=== PATIENT | male | born 1950 | race Caucasian/White ===

== ENCOUNTER 2021-05-06 08:23 | Day surgery (SDC) | payer OTHER ==
[2021-05-02 12:17] LABS: Absolute Lymphocytes (CBC) 2.1 K/uL (0.7-4.9); Hematocrit 37.1 % (39.6-49.0); Lymphocytes % 34.5 % (15.3-44.8); MPV 8.3 fL (7.6-11.3); RBC Red Blood Cell Count 4.44 M/uL (4.33-5.43)
[2021-05-02 12:21] LABS: Potassium 4.2 mmol/L (3.5-5.1)
--- NOTE | 2021-05-04 07:30 | EKG ---
Test Date: 2021-05-02 Test Time: 11:47:37 Funeral Service Practitioner/Embalmer: PONCHO MEASUREMENT RESULTS: Intervals: Rate: 79 MT: 144 QRSD: 80 QT: 380 QTc: 435 [place]: P: -7 MT: 144 QRS: 58 T: 41 INTERPRETIVE STATEMENTS: Sinus rhythm with premature atrial complexes Otherwise normal ECG Compared to ECG 10/21/2018 09:58:05 Atrial premature complex(es) now present Sinus bradycardia no longer present Electronically Signed On 05-04-21 07:26:29 COMPUTER SYSTEMS SECURITY ANALYST by Esau Hunt
[2021-05-06] MEDS ORDERED: Ringers Lactate 1,000 ML IV ONE ×2 (08:36→12:33)
[2021-05-06] MEDS ORDERED: CEFAZOLIN/SWI 2gm 2 GM/20 ML SYR ONE (08:37)
[2021-05-06] MEDS ORDERED: CELECOXIB 100 MG CAPSULE ONE (08:49)
[2021-05-06] MEDS ORDERED: ACETAMINOPHEN 500 MG TAB ONE (08:49)
[2021-05-06] MEDS ORDERED: CELECOXIB 100 MG CAPSULE PO ONE (08:50)
[2021-05-06] MEDS ORDERED: ACETAMINOPHEN 500 MG TAB PO ONE (08:50)
[2021-05-06] MEDS ORDERED: BUPIVACAINE 0.25% PF 10 ML VIAL ONE (09:20)
[2021-05-06] MEDS ORDERED: propofoL 200 MG/20 ML VIAL IV ONE (09:30)
[2021-05-06] MEDS ORDERED: MIDAZOLAM HCL 2 MG/2 ML INJ ONE (09:31)
[2021-05-06] MEDS ORDERED: FENTANYL CITR 100 MCG/2 ML ONE (09:31)
[2021-05-06] MEDS ORDERED: ONDANSETRON 4 MG/2 ML VIAL ONE (09:32)
[2021-05-06] MEDS ORDERED: LIDOCAINE 2% MPF 5 ML VIAL ONE (09:34)
[2021-05-06] MEDS ORDERED: GLYCOPYRROLATE 0.2 MG/ML SYR ONE (09:37)
[2021-05-06] MEDS ORDERED: NEOSTIGMINE 1 MG/ML -5 ML ONE (09:38)
[2021-05-06] MEDS ORDERED: ROCURONIUM 50 MG/5 ML VIAL IV ONE (09:38)
[2021-05-06] MEDS ORDERED: EPHEDRINE SULF 50 MG/ML VIAL ONE (10:14)
--- NOTE | 2021-05-06 11:31 | P.OP ---
Preoperative diagnosis: LEFT inguinal hernia Postoperative diagnosis: LEFT inguinal hernia Primary procedure: Open LEFT Inguinal Hernia Repair with mesh Anesthesia: GETA + Local Estimated blood loss: <10cc Specimen: cord lipoma Findings: Pantaloon - Direct / Indirect LEFT inguinal hernia Complications: None Implants: Large Bard Perfix Plug and Patch Hernia Mesh Transferred to: Recovery Room () Condition: Good
[2021-05-06] MEDS: HYDROMORPHONE HCL 1 MG/ML INJ ONE ×2 (12:09→12:14)
[2021-05-06 12:14] VITALS: O2SAT 99
[2021-05-06] MEDS ORDERED: HYDROCODONE/APAP 7.5/325 MG TAB ONE (12:59)
[2021-05-06 14:14] VITALS: BP 132/69; TEMP 97.1
--- NOTE | 2021-05-06 21:41 | OP ---
Date of Procedure: 05/06/2021 Surgeon: Issa Blackman MD, Preoperative Diagnosis: Left inguinal hernia. Postoperative Diagnosis: Left inguinal hernia. Procedure: Open left inguinal hernia repair with mesh. Anesthesia: General endotracheal plus local with 0.25% Marcaine. Estimated Blood Loss: Less than 10 mL. Specimen: Cord lipoma. Findings: This was a pantaloon direct/indirect left inguinal hernia, reducible. Complications: None. Implants: Large Bard PerFix plug and patch hernia mesh used. The patient was transferred to recovery room in good condition. Procedure In Detail: After informed consent was obtained, the patient was brought to the operating r oom, prepped and draped in the usual sterile fashion. After adequate anesthesia was achieved, an are a of the left inguinal skin was appropriately anesthetized with 0.25% Marcaine without epinephrine, s harply incised with a 10 blade down to the subcutaneous tissues, and dissection continued down throug h the Camper fat and [place]idad fascia to expose the external oblique aponeurosis. This was opened sharp ly with a 15 blade. I then opened in its entirety protecting the ilioinguinal nerve both superior to the deep inguinal ring as well as the proximal aspect. The spermatic cord and structures were encir cled with a Ollie drain at this point, and then I dissected the cord lipoma off the spermatic cord at this point. Examination discovered 2 hernia defects, 1 from the deep inguinal ring and 1 from the floor consistent with a pantaloon direct/indirect type inguinal hernia. I dissected the hernia sac free from the surrounding tissues circumferentially off the spermatic cord and structures. I opened the hernia sac and inverted the sac at this point and ligated it with a 3-0 Vicryl suture after inver ting the sac. I then placed a large Bard PerFix plug into the extraperitoneal space at this point wi th good apposition of the tissues. I then secured the mesh using a single 2-0 PDS suture over the de fect of the plug. At this point, I sized the hernia patch appropriately and placed on the floor of t he inguinal canal. At this point, the patient remained in steep Trendelenburg position. I then secu red the mesh to the pubic tubercle and at this point, I secured the hernia patch to the shelving edge of the inguinal ligament as well as the internal oblique fibers. At this point, I reconstituted the deep inguinal ring using 2-0 PDS sutures. This was the same suture used for the entire hernia patch , which was placed in interrupted fashion. At this point, the area was copiously irrigated and sucti oned out completely dry. Ollie drains were removed. The area was irrigated once again and the ext ernal oblique aponeurosis was closed using a running 3-0 Vicryl suture with good apposition of the ti ssues. The Camper fat and Trinidad fascia were then closed also using an interrupted 3-0 Vicryl suture and the deep dermal plane was closed using interrupted 3-0 Vicryl sutures. Skin was closed with 4-0 Monocryl in a running fashion. Dermabond was placed over top. The patient tolerated procedure well without evidence of complication, and transferred in good condition. All counts were correct at the end of the case. FATUMA/CAMDEN Voice ID: [id number] Report ID: [id number]
== END 2021-05-06 13:50 | disposition home or self-care (01) ==
LOC: OR 08:23
PROVIDERS: ATTEND Surgery
PROC: 0YU60JZ Supplement Left Inguinal Region with Synthetic Substitute, Open Approach (ICD-10-PCS; principal; 2021-05-06 10:00)
DX: K40.90 Unilateral inguinal hernia, without obstruction or gangrene, not specified as recurrent (principal); Z20.822 Contact with and (suspected) exposure to COVID-19
CPT/HCPCS: 93005; 85025; 80048; 36415; 88302; 49505; U0002; J2704; J2250; J3010; J1170; J2710; J0690; J7120 ×2; J2405

== ENCOUNTER 2024-08-29 08:19 | Day surgery (SDC) | payer OTHER ==
[2024-08-28 10:03] LABS: Absolute Eosinophils 0.2 K/uL (0-0.5); Absolute Lymphocytes (CBC) 1.8 K/uL (0.7-4.9); Absolute Monocytes 0.7 K/uL (0.1-1.3); Absolute Neutrophil 4.1 K/uL (1.8-8.0); Basophils % 0.3 % (0-1.3); Eosinophils % 2.4 % (0-4.4); Hematocrit 41.6 % (39.6-49.0); Hemoglobin 14.3 g/dL (13.6-17.9); Lymphocytes % 26.3 % (15.3-44.8); MCH 31.1 pg (27.0-35.0); MCHC 34.3 g/dL (32.0-36.0); MCV 90.7 fL (80-100); Monocytes % 9.9 % (3.3-12.3); Neutrophils % 61.1 % (41.7-73.7); Nucleated Red Blood Cells % 0.1 % (0-0); Platelets 233 thou/uL (152-406); RBC Red Blood Cell Count 4.59 M/uL (4.33-5.43)
[2024-08-28 10:16] LABS: Anion Gap 10.2 mEq/L (5.0-15.0); Potassium 4.2 mEq/L (3.5-5.1)
[2024-08-29] MEDS: Ringers Lactate 1,000 ML IV ONE (08:40)
[2024-08-29] MEDS: LIDOCAINE HCL/EPINEPHRINE 20 ML MDV ONE (10:31)
--- NOTE | 2024-08-29 11:33 | P.OP ---
Machine Spring Former: NONE,NONE Preoperative diagnosis: Basal cell carcinoma left external ear Postoperative diagnosis: Same Primary procedure: Excision with layered closure left external ear Anesthesia: Local anesthetic only Estimated blood loss: Less than 5 mL Specimen: Left ear, suture doe 12:00, frozen section Findings: Negative margins on frozen section Operative Technique: The patient was brought to the operating room and positioned in a supine position with oxygen and cardiac monitors. The timeout was confirming the patient's identity, planned procedure and location. The patient verbally confirmed the location as the left ear which had also been marked in the preoperative area. The left ear was cleaned with isopropyl alcohol and the inspected. There was superficial scabbing on the inferior/posterior aspect of the helix. There was adjacent scar from remote prior excision. The area surrounding the visible lesion was injected with 1% lidocaine with epinephrine. A total of 1.25 mL was used. The ear and surrounding region was prepped with Betadine and draped in a sterile fashion. Fire risk was low to medium as no supplemental oxygen was administered. A surgical marking pen was used to marilee the planned incision site encompassing the visible lesion and allowing a 2 to 3 mm margin. A 15 blade scalpel was used to incise through the skin and subcutaneous tissues down to the level of the cartilage. The specimen was marked with a suture at the superiormost aspect indicating 12:00 and was sent to pathology for frozen section analysis. Intraoperative consultation with the pathologist confirmed basal cell carcinoma with negative peripheral and deep margins. The defect measured 2-1/2 x 1-1/2 cm. To allow for closure approximately 2 to 3 mm of cartilage from the inferior helical rim were trimmed with scissors. This allowed approximation of the anterior and posterior skin edges. A iris scissor was used to elevate the tissues approximately 5 mm from the skin edge in order to aid in advancement of the tissues. The deep subcutaneous tissues were approximated using a 4-0 Vicryl buried suture. The skin was then closed in a running fashion using 4-0 plain gut suture. The surrounding skin was cleaned and dried and a small amount of triple antibiotic ointment was applied to the suture line. The counts were all correct and the patient was transferred back to day surgery for disposition and discharge to home. Complications: None Transferred to: Recovery Room Condition: Good
[2024-08-29 11:39] VITALS: BP 124/73; TEMP 97.1; O2SAT 99
--- NOTE | 2024-09-01 16:56 | EKG ---
Test Date: 2024-08-28 Test Time: 08:49:49 Procurement Agent: CHELY MEASUREMENT RESULTS: Intervals: Rate: 64 IN: 174 QRSD: 80 QT: 394 QTc: 406 [place]: P: 14 IN: 174 QRS: 55 T: 36 INTERPRETIVE STATEMENTS: Normal sinus rhythm Normal ECG Compared to ECG 05/02/2021 11:47:37 Atrial premature complex(es) no longer present Electronically Signed On 09-01-24 16:50:21 CDT by Glenn Lopes
== END 2024-08-29 11:40 | disposition home or self-care (01) ==
LOC: OR 08:19
PROVIDERS: ATTEND Otolaryngology
PROC: 0HB3XZZ Excision of Left Ear Skin, External Approach (ICD-10-PCS; principal; 2024-08-29 09:30)
DX: C44.219 Basal cell carcinoma of skin of left ear and external auricular canal (principal)
CPT/HCPCS: 93005; 85025; 80048; 36415; 88331; 88332; 88305; 11643; 13151; J7120